=== PATIENT | male | born 1930 | race Caucasian/White ===

== ENCOUNTER 2016-12-30 10:55 | Emergency (ER) | payer MEDICARE ==
[~2016-12-30] VITALS: Ht 185.4 cm; Wt 90.7 kg
[~2016-12-30 10:55] MED LIST: ALPR0.254 PO; B-CO1TAB22 PO; CLOP75TA28 PO; DRON400T PO; LACT10SO3 PO; PANT40TA2 PO; SEVE800T8 PO; TEMA30CA PO
[2016-12-30 11:35] VITALS: BP 159/74
[2016-12-30 12:14] LABS: Urine Bilirubin Negative (Negative); Urine Color Yellow (Yellow); Urine Glucose Normal (Normal); Urine Ketone Negative (Negative); Urine Nitrite Negative (Negative); Urine RBC 26 /hpf (0 - 3); Urine Urobilinogen Normal (Negative)
[2016-12-30 12:22] LABS: Urine Blood 2+ /uL (Negative)
[2016-12-31] MEDS ORDERED: SEVE800T8 PO (18:44)
[2016-12-31] MEDS ORDERED: HYDR-531 PO (18:44)
== END 2016-12-30 12:42 | disposition home or self-care (01) ==
LOC: EDBD 10:55 → EDUNIT# 10:55 → ER 10:55
DX: N39.0 Urinary tract infection, site not specified (principal); I12.0 Hypertensive chronic kidney disease with stage 5 chronic kidney disease or end stage renal disease; N18.6 End stage renal disease; Z99.2 Dependence on renal dialysis; Z98.61 Coronary angioplasty status
CPT/HCPCS: 51702; 81001; 81002

== ENCOUNTER 2016-12-30 21:22 | Inpatient (IN) | payer MEDICARE ==
[~2016-12-30] VITALS: Ht 185.4 cm; Wt 96.0 kg
[2016-12-31 00:24] LABS: Basophils # (auto) 0 uL; Basophils % (auto) 0.2 % (0.0-2.0); Eosinophils # (auto) 0.2 uL; Eosinophils % (auto) 1.7 % (0.0-7.0); Hematocrit 27.9 % (41.0-53.0); Hemoglobin 9.1 g/dL (13.5-17.5); Lymphocytes # (auto) 0.9 uL; Mean Corpuscular Hemoglobin 28.3 pg (28.0-32.0); Mean Corpuscular Hgb Conc. 32.7 g/dL (32.0-36.0); Mean Corpuscular Volume 86.7 fL (80.0-100.0); Mean Platelet Volume 8.2 fL (7.4-10.4); Monocytes # (auto) 0.5 uL; Neutrophils # (auto) 11.2 uL; Neutrophils % (auto) 87.1 % (37.0-80.0); Platelet Count (auto) 359 10^3/uL (140-450); Red Cell Distribution Width 12.6 % (11.6-16.0); SUSPECT SEE PRINTOUT; White Blood Cell 12.8 10^3/uL (4.4-10.8)
[2016-12-31 00:26] LABS: Urine Squamous Epithelial Cell None Seen /hpf (<5)
[2016-12-31 00:42] LABS: Albumin 2.7 g/dL (3.4-5.0); BUN/Creatinine Ratio 7.6; Calcium 7.4 mg/dL (8.5-10.1); Potassium 4.1 mmol/L (3.5-5.1)
[2016-12-31 00:45] LABS: Bilirubin, Total 0.4 mg/dL (0.2-1.0); Total Protein 7.3 g/dL (6.4-8.2)
[2016-12-31 00:50] LABS: Urine Bilirubin Negative (Negative); Urine Blood 3+ /uL (Negative); Urine Color RED (Yellow); Urine Glucose Normal (Normal); Urine Ketone Negative (Negative); Urine Nitrite Negative (Negative); Urine Urobilinogen Normal (Negative); Urine pH 8.5 (5.0-8.0)
[2016-12-31 00:51] LABS: Urine RBC 2037 /hpf (0 - 3)
[2016-12-31 00:52] LABS: INR 1.05 (0.9-1.15); Prothrombin Time 11.4 sec (9.37-12.3)
[2016-12-31] MEDS ORDERED: cefTRIAXone 1GM/50ML D5W 50 ML IV ONE (03:30)
[2016-12-31] MEDS ORDERED: ACETAMINOPHEN 325 MG TAB PO PRN (05:30)
[2016-12-31] MEDS ORDERED: ONDANSETRON HCL 4 MG/2 ML VIAL IV PRN (05:30)
[2016-12-31] MEDS ORDERED: HYDROcodone-ACET 5/325MG TAB PO PRN (05:30)
[2016-12-31] MEDS: SEVELAMER 800 MG TAB PO SCH ×3 (08:19→19:43)
[2016-12-31 08:25] LABS: Hematocrit 25.1 % (41.0-53.0); Hemoglobin 8.6 g/dL (13.5-17.5)
[2016-12-31] MEDS: DRONEDARONE HCL 400 MG TAB PO SCH (09:58)
[2016-12-31] MEDS: FAMOTIDINE 20 MG TAB PO SCH (09:58)
[2016-12-31] MEDS ORDERED: cloNIDine HCL 0.1 MG TAB PO PRN (13:15)
[2016-12-31 18:19] VITALS: BP 152/67
[2016-12-31] MEDS ORDERED: HYDR-531 PO (18:44)
[2016-12-31] MEDS ORDERED: SEVE800T8 PO (18:44)
[2016-12-31] MEDS: BOOST PLUS 8 ounce PO SCH ×2 (19:43→21:50)
[2016-12-31 20:00] VITALS: BP 148/74
[2016-12-31 21:30] VITALS: BP 148/74
[2016-12-31] MEDS: TEMAZEPAM 15 MG CAP PO PRN (21:50)
[2016-12-31] MEDS: cefTRIAXone 1GM/50ML D5W 50 ML IV SCH (21:50)
[2017-01-01] VITALS (7 sets, daily range): BP systolic 144–176; BP diastolic 63–91
[2017-01-01 05:35] LABS: Basophils # (auto) 0.1 uL; Basophils % (auto) 0.8 % (0.0-2.0); CONDITION Y; DEFINITIVE SEE PRINTOUT; Eosinophils # (auto) 0.3 uL; Eosinophils % (auto) 3.2 % (0.0-7.0); Hematocrit 25.1 % (41.0-53.0); Hemoglobin 8.4 g/dL (13.5-17.5); Lymphocytes # (auto) 1.4 uL; Lymphocytes % (auto) 12.5 % (10.0-50.0); Mean Corpuscular Hemoglobin 29.6 pg (28.0-32.0); Mean Corpuscular Hgb Conc. 33.6 g/dL (32.0-36.0); Mean Corpuscular Volume 88.1 fL (80.0-100.0); Mean Platelet Volume 8.6 fL (7.4-10.4); Monocytes # (auto) 0.6 uL; Monocytes % (auto) 5.2 % (0.0-12.0); Neutrophils # (auto) 8.6 uL; Neutrophils % (auto) 78.3 % (37.0-80.0); Platelet Count (auto) 314 10^3/uL (140-450); Red Cell Distribution Width 13.5 % (11.6-16.0)
[2017-01-01 06:08] LABS: Albumin 2.4 g/dL (3.4-5.0); BUN/Creatinine Ratio 8.1; Bilirubin, Total 0.4 mg/dL (0.2-1.0); Calcium 7.9 mg/dL (8.5-10.1); Potassium 4.5 mmol/L (3.5-5.1); Total Protein 6.2 g/dL (6.4-8.2)
[2017-01-01] MEDS: BOOST PLUS 8 ounce PO SCH ×4 (06:22→21:29)
[2017-01-01] MEDS: SEVELAMER 800 MG TAB PO SCH ×3 (08:44→18:41)
[2017-01-01] MEDS: DRONEDARONE HCL 400 MG TAB PO SCH (09:28)
[2017-01-01] MEDS: FAMOTIDINE 20 MG TAB PO SCH (09:28)
[2017-01-01] MEDS ORDERED: TAM04C PO (10:42)
[2017-01-01] MEDS ORDERED: TAMSULOSIN HYDROCHLORIDE 0.4 MG CAP PO ONE (10:45)
[2017-01-01] MEDS ORDERED: EPOETIN ALFA 10,000 UNIT/1 ML VIAL IV ONE (16:15)
[2017-01-01] MEDS ORDERED: SODIUM CHL 0.9% 1000 ML BAG XX ONE (16:15)
[2017-01-01] MEDS ORDERED: TAMSULOSIN HYDROCHLORIDE 0.4 MG CAP PO SCH (18:00)
[2017-01-01] MEDS: cefTRIAXone 1GM/50ML D5W 50 ML IV SCH (21:29)
[2017-01-01] MEDS: TEMAZEPAM 15 MG CAP PO PRN (21:36)
[2017-01-02 04:49] VITALS: BP 135/64
[2017-01-02] MEDS: BOOST PLUS 8 ounce PO SCH (06:00)
[2017-01-02 08:00] VITALS: BP 143/69
[2017-01-02 08:06] LABS: PSA Free 1.65 ng/mL
[2017-01-02] MEDS: SEVELAMER 800 MG TAB PO SCH (08:16)
[2017-01-02] MEDS ORDERED: CEPH-37 PO (08:17)
[2017-01-02 09:00] VITALS: BP 143/69
[2017-01-02] MEDS: FAMOTIDINE 20 MG TAB PO SCH (09:01)
[2017-01-02] MEDS: DRONEDARONE HCL 400 MG TAB PO SCH (09:01)
[2017-01-02 10:27] VITALS: BP 143/69
== END 2017-01-02 11:05 | disposition home or self-care (01) | DRG 689 ==
LOC: EDBD 21:22 → ER 21:29 → OVERFLOW 21:30 → CENTRAL 12-31 15:32
PROVIDERS: ADMIT Nurse Practitioner; ATTEND Nurse Practitioner Acute Care
PROC: 5A1D60Z (ICD-10-PCS; principal; 2016-12-31)
DX: N39.0 Urinary tract infection, site not specified (principal); N18.6 End stage renal disease; E44.0 Moderate protein-calorie malnutrition; I12.0 Hypertensive chronic kidney disease with stage 5 chronic kidney disease or end stage renal disease; C74.91 Malignant neoplasm of unspecified part of right adrenal gland; J90 Pleural effusion, not elsewhere classified; J98.11 Atelectasis; R31.0 Gross hematuria; Z99.2 Dependence on renal dialysis; N13.30 Unspecified hydronephrosis; D63.8 Anemia in other chronic diseases classified elsewhere; N40.0 Benign prostatic hyperplasia without lower urinary tract symptoms; R33.9 Retention of urine, unspecified; E78.5 Hyperlipidemia, unspecified; E87.70 Fluid overload, unspecified; I70.0 Atherosclerosis of aorta; K57.30 Diverticulosis of large intestine without perforation or abscess without bleeding; I51.7 Cardiomegaly; N28.1 Cyst of kidney, acquired; R16.2 Hepatomegaly with splenomegaly, not elsewhere classified; Z68.27 Body mass index [BMI] 27.0-27.9, adult; Z79.899 Other long term (current) drug therapy
CPT/HCPCS: 36415; 51702; 71010; 74176; 80053; 81001; 81002; 84154; 85014; 85018; 85025; 85610; 85730; 87081; 87086; 90935; 93005; 94761; 96365; J0696; J0885

== ENCOUNTER → 2017-01-08 | Outpatient (CLI) | payer MEDICARE ==
[~2017-01-08] MED LIST changes: -ALPR0.254 PO; +CEPH-37 PO; +HYDR-531 PO; -LACT10SO3 PO; +TAM04C PO
== END | disposition home or self-care (01) ==
LOC: LAB 13:00
PROVIDERS: ATTEND Urology
DX: R33.9 Retention of urine, unspecified (principal); N40.0 Benign prostatic hyperplasia without lower urinary tract symptoms

== ENCOUNTER → 2017-03-10 | Day surgery (SDC) | payer MEDICARE ==
[2017-03-06 12:47] LABS: Basophils # (auto) 0 uL; Basophils % (auto) 0.2 % (0.0-2.0); CONDITION Y; Eosinophils # (auto) 0.2 uL; Hemoglobin 10.1 g/dL (13.5-17.5); Lymphocytes % (auto) 9.7 % (10.0-50.0); Mean Corpuscular Hemoglobin 27.8 pg (28.0-32.0); Mean Corpuscular Hgb Conc. 32.5 g/dL (32.0-36.0); Mean Corpuscular Volume 85.5 fL (80.0-100.0); Mean Platelet Volume 8.7 fL (6.9-10.8); Monocytes # (auto) 0.6 uL; Monocytes % (auto) 5.8 % (0.0-12.0); Neutrophils # (auto) 8.6 uL; Neutrophils % (auto) 82.3 % (37.0-80.0); Platelet Count (auto) 216 10^3/uL (140-450); Red Cell Distribution Width 16.8 % (11.8-14.3); White Blood Cell 10.4 10^3/uL (4.4-10.8)
[2017-03-06 13:05] LABS: INR 1.06 (0.9-1.15); Prothrombin Time 11.6 sec (9.37-12.3)
[2017-03-06 13:14] LABS: Albumin 3.1 g/dL (3.4-5.0); BUN/Creatinine Ratio 6.9; Bilirubin, Total 0.5 mg/dL (0.2-1.0); Calcium 8.4 mg/dL (8.5-10.1); Potassium 3.6 mmol/L (3.5-5.1); Total Protein 7.3 g/dL (6.4-8.2)
[~2017-03-10] VITALS: Ht 185.4 cm; Wt 90.7 kg
[~2017-03-10] MED LIST changes: -B-CO1TAB22 PO; +BELLADONNA ALKAL/OPIUM (16.2/30MG) RECT SUPP PR ONE; -CLOP75TA28 PO; +GLYCOPYRROLATE 0.2 MG/ML 1ML VIAL IV ONE; +MORPHINE SULF INJ 2 MG/ML SYRINGE 1ML IV PRN; +NEOSTIGMINE 1 MG/ML INJ (10mg/10ML VIAL) IV ONE; +ONDANSETRON HCL 4 MG/2 ML VIAL IV ONE; +PROPOFOL 10 MG/ML 20 ML IV ONE; +ROCURONIUM 10MG/ML 10ML VIAL IV ONE; -TEMA30CA PO; +ceFAZolin 1GM/50ML D5W 50 ML IV ONE; +ePHEDrine SULFATE 50 MG/ML AMP IV PRN; +fentaNYL CITRATE 100 MCG/2 ML VL ONE; +hydrALAZINE HCL 20 MG/ML VL IV PRN
[2017-03-10 12:45] VITALS: BP 158/80
== END | disposition home or self-care (01) ==
LOC: SUR 06:09
PROVIDERS: ATTEND Urology
DX: N40.1 Benign prostatic hyperplasia with lower urinary tract symptoms (principal); R97.20 Elevated prostate specific antigen [PSA]; I25.10 Atherosclerotic heart disease of native coronary artery without angina pectoris; N18.6 End stage renal disease
CPT/HCPCS: 36415; 52601; 80053; 84132; 85025; 85610; 85730; 88305; J0690; J2704; J3010

== ENCOUNTER 2017-03-16 12:31 | Inpatient (IN) | payer MEDICARE ==
[~2017-03-16] VITALS: Ht 185.4 cm; Wt 95.6 kg
[~2017-03-16 12:31] MED LIST changes: -BELLADONNA ALKAL/OPIUM (16.2/30MG) RECT SUPP PR ONE; -GLYCOPYRROLATE 0.2 MG/ML 1ML VIAL IV ONE; -MORPHINE SULF INJ 2 MG/ML SYRINGE 1ML IV PRN; -NEOSTIGMINE 1 MG/ML INJ (10mg/10ML VIAL) IV ONE; -ONDANSETRON HCL 4 MG/2 ML VIAL IV ONE; -PROPOFOL 10 MG/ML 20 ML IV ONE; -ROCURONIUM 10MG/ML 10ML VIAL IV ONE; -ceFAZolin 1GM/50ML D5W 50 ML IV ONE; -ePHEDrine SULFATE 50 MG/ML AMP IV PRN; -fentaNYL CITRATE 100 MCG/2 ML VL ONE; -hydrALAZINE HCL 20 MG/ML VL IV PRN
[2017-03-16 13:26] LABS: Basophils # (auto) 0.1 uL; Basophils % (auto) 1.3 % (0.0-2.0); Eosinophils # (auto) 0.4 uL; Eosinophils % (auto) 4.8 % (0.0-7.0); Hematocrit 32.9 % (41.0-53.0); Hemoglobin 10.5 g/dL (13.5-17.5); Lymphocytes # (auto) 0.6 uL; Lymphocytes % (auto) 6.6 % (10.0-50.0); Mean Corpuscular Hemoglobin 27.6 pg (28.0-32.0); Mean Corpuscular Hgb Conc. 31.8 g/dL (32.0-36.0); Mean Corpuscular Volume 86.7 fL (80.0-100.0); Mean Platelet Volume 8.7 fL (6.9-10.8); Monocytes # (auto) 0.4 uL; Monocytes % (auto) 5.1 % (0.0-12.0); Neutrophils # (auto) 6.9 uL; Neutrophils % (auto) 82.2 % (37.0-80.0); Platelet Count (auto) 130 10^3/uL (140-450); Red Cell Distribution Width 17.2 % (11.8-14.3); White Blood Cell 8.4 10^3/uL (4.4-10.8)
[2017-03-16 13:54] LABS: BUN/Creatinine Ratio 6.9; Bilirubin, Total 0.5 mg/dL (0.2-1.0); Calcium 8.5 mg/dL (8.5-10.1); Potassium 3.6 mmol/L (3.5-5.1); Total Protein 6.9 g/dL (6.4-8.2)
[2017-03-16] MEDS ORDERED: NITROGLYCERIN 0.4 MG SL TAB SL PRN (14:30)
[2017-03-16] MEDS ORDERED: MORPHINE SULF INJ 2 MG/ML SYRINGE 1ML IV PRN (14:30)
[2017-03-16] MEDS ORDERED: HYDROcodone-ACET 5/325MG TAB PO PRN (14:30)
[2017-03-16 14:51] LABS: INR 1.07 (0.9-1.15); Partial Thromboplastin Time 30.4 sec (22.64-33.71); Prothrombin Time 11.7 sec (9.37-12.3)
[2017-03-16] MEDS ORDERED: cefTRIAXone 1GM/50ML D5W 50 ML IV ONE (15:00)
[2017-03-16] MEDS ORDERED: SEVELAMER 800 MG TAB PO ONE (15:00)
[2017-03-16] MEDS ORDERED: PANTOPRAZOLE 40 MG TAB PO ONE (15:00)
[2017-03-16] MEDS ORDERED: FUROSEMIDE 100 MG/10ML VIAL IV ONE (17:00)
[2017-03-16] MEDS: cloNIDine HCL 0.1 MG TAB PO PRN ×2 (17:04→18:26)
[2017-03-16] MEDS: ALBUTEROL SULF 2.5 MG/0.5ML(0.5%) NEB SOLN NEB PRN ×2 (17:31→22:54)
[2017-03-16] MEDS: IPRATROPIUM BROM 0.5 MG/2.5ML INH SOL NEB SCH (18:22)
[2017-03-16] MEDS: SEVELAMER 800 MG TAB PO SCH (18:26)
[2017-03-16 20:00] VITALS: BP 145/56
[2017-03-16 20:30] VITALS: BP 145/56
[2017-03-16 21:39] VITALS: BP 138/61
[2017-03-16] MEDS ORDERED: MULTAQ 400 MG PO SCH (22:00)
[2017-03-17] VITALS (7 sets, daily range): BP systolic 114–142; BP diastolic 57–94
[2017-03-17] MEDS: IPRATROPIUM BROM 0.5 MG/2.5ML INH SOL NEB SCH ×5 (00:47→23:57)
[2017-03-17] MEDS: ALBUTEROL SULF 2.5 MG/0.5ML(0.5%) NEB SOLN NEB PRN ×2 (03:04→06:40)
[2017-03-17] MEDS ORDERED: FUROSEMIDE 40 MG/4 ML VIAL IV ONE (04:15)
[2017-03-17 05:24] LABS: Urine Bilirubin Negative (Negative); Urine Blood 2+ /uL (Negative); Urine Glucose Normal (Normal); Urine Ketone Negative (Negative); Urine Nitrite Negative (Negative); Urine RBC 1633 /hpf (0 - 3); Urine Urobilinogen Normal (Negative)
[2017-03-17 05:25] LABS: Urine Color Red (Yellow)
[2017-03-17 06:44] LABS: Basophils # (auto) 0.1 uL; Eosinophils # (auto) 0.5 uL; Eosinophils % (auto) 5.3 % (0.0-7.0); Hematocrit 30.5 % (41.0-53.0); Hemoglobin 9.9 g/dL (13.5-17.5); Lymphocytes # (auto) 0.6 uL; Lymphocytes % (auto) 7.4 % (10.0-50.0); Mean Corpuscular Hgb Conc. 32.3 g/dL (32.0-36.0); Mean Corpuscular Volume 86.6 fL (80.0-100.0); Mean Platelet Volume 8.8 fL (6.9-10.8); Monocytes # (auto) 0.5 uL; Monocytes % (auto) 5.7 % (0.0-12.0); Neutrophils # (auto) 7.1 uL; Neutrophils % (auto) 80.6 % (37.0-80.0); Platelet Count (auto) 111 10^3/uL (140-450); Red Cell Distribution Width 16.9 % (11.8-14.3); White Blood Cell 8.8 10^3/uL (4.4-10.8)
[2017-03-17] MEDS ORDERED: TEMA15CA91 PO (07:09)
[2017-03-17] MEDS ORDERED: CLOP75TA41 PO (07:09)
[2017-03-17] MEDS ORDERED: MULTTAB61 PO (07:09)
[2017-03-17] MEDS ORDERED: DOCU100T15 PO (07:09)
[2017-03-17 07:10] LABS: BUN/Creatinine Ratio 7.8; Calcium 8.5 mg/dL (8.5-10.1); Potassium 3.5 mmol/L (3.5-5.1)
[2017-03-17] MEDS: SEVELAMER 800 MG TAB PO SCH ×3 (08:00→18:34)
[2017-03-17] MEDS: cefTRIAXone 1GM/50ML D5W 50 ML IV SCH (09:00)
[2017-03-17] MEDS: PANTOPRAZOLE 40 MG TAB PO SCH (10:00)
[2017-03-17] MEDS ORDERED: EPOETIN ALFA 10,000 UNIT/1 ML VIAL IV ONE (11:00)
[2017-03-17] MEDS ORDERED: TEMAZEPAM 15 MG CAP PO ONE (22:30)
[2017-03-18 05:00] VITALS: BP 150/80
[2017-03-18] MEDS: IPRATROPIUM BROM 0.5 MG/2.5ML INH SOL NEB SCH ×3 (06:24→19:08)
[2017-03-18 09:00] VITALS: BP 142/71
[2017-03-18] MEDS: PANTOPRAZOLE 40 MG TAB PO SCH (09:08)
[2017-03-18] MEDS: SEVELAMER 800 MG TAB PO SCH ×3 (09:09→18:16)
[2017-03-18] MEDS: cefTRIAXone 1GM/50ML D5W 50 ML IV SCH (09:09)
[2017-03-18] MEDS ORDERED: DOCUSATE SOD 100 MG CAP PO PRN (10:30)
[2017-03-18] MEDS ORDERED: TEMAZEPAM 15 MG CAP PO PRN (10:45)
[2017-03-18] MEDS ORDERED: LACTULOSE 20Gm/30ML SOLN PO ONE (12:00)
[2017-03-18 13:00] VITALS: BP 142/66
[2017-03-18] MEDS ORDERED: SEVELAMER 800 MG TAB PO ONE (13:15)
[2017-03-18 16:52] VITALS: BP 140/67
[2017-03-18 20:00] VITALS: BP 158/77
[2017-03-18 21:30] VITALS: BP 158/77
[2017-03-18] MEDS: LACTULOSE 20Gm/30ML SOLN PO SCH (21:55)
[2017-03-19] MEDS: IPRATROPIUM BROM 0.5 MG/2.5ML INH SOL NEB SCH ×3 (01:16→11:50)
[2017-03-19] MEDS: ALBUTEROL SULF 2.5 MG/0.5ML(0.5%) NEB SOLN NEB PRN ×3 (03:34→11:50)
[2017-03-19 05:00] VITALS: BP 129/75
[2017-03-19 06:38] LABS: Basophils # (auto) 0.1 uL; Basophils % (auto) 0.9 % (0.0-2.0); Eosinophils # (auto) 0.6 uL; Eosinophils % (auto) 6.8 % (0.0-7.0); Hematocrit 33.2 % (41.0-53.0); Hemoglobin 10.8 g/dL (13.5-17.5); Lymphocytes # (auto) 0.9 uL; Lymphocytes % (auto) 10.1 % (10.0-50.0); Mean Corpuscular Hemoglobin 27.8 pg (28.0-32.0); Mean Corpuscular Hgb Conc. 32.4 g/dL (32.0-36.0); Mean Corpuscular Volume 85.8 fL (80.0-100.0); Mean Platelet Volume 8.6 fL (6.9-10.8); Monocytes # (auto) 0.7 uL; Monocytes % (auto) 7.6 % (0.0-12.0); Neutrophils # (auto) 6.7 uL; Neutrophils % (auto) 74.6 % (37.0-80.0); Nucleated Red Blood Cells % 0.1 %; Platelet Count (auto) 143 10^3/uL (140-450); Red Cell Distribution Width 17.1 % (11.8-14.3)
[2017-03-19] MEDS: cefTRIAXone 1GM/50ML D5W 50 ML IV SCH (08:44)
[2017-03-19] MEDS: SEVELAMER 800 MG TAB PO SCH ×2 (08:44→12:57)
[2017-03-19] MEDS: PANTOPRAZOLE 40 MG TAB PO SCH (08:44)
[2017-03-19] MEDS: LACTULOSE 20Gm/30ML SOLN PO SCH (08:44)
[2017-03-19 09:39] VITALS: BP 140/70
[2017-03-19 13:00] VITALS: BP 150/72
[2017-03-19] MEDS ORDERED: cefTAZidime 1 GM in D5W 5% 50 ML IV ONE (14:45)
[2017-03-20] MEDS ORDERED: cefTAZidime 1 GM in D5W 5% 50 ML IV SCH (10:00)
== END 2017-03-19 14:30 | DRG 698 ==
LOC: ER 12:31 → TELE 12:32 → TELE-CENTR 20:10
PROVIDERS: ADMIT Internal Medicine; ATTEND Internal Medicine
PROC: 5A1D60Z (ICD-10-PCS; principal; 2017-03-17)
DX: N99.89 Other postprocedural complications and disorders of genitourinary system (principal); I50.33 Acute on chronic diastolic (congestive) heart failure; N18.6 End stage renal disease; N39.0 Urinary tract infection, site not specified; R31.0 Gross hematuria; I48.0 Paroxysmal atrial fibrillation; I13.2 Hypertensive heart and chronic kidney disease with heart failure and with stage 5 chronic kidney disease, or end stage renal disease; D64.9 Anemia, unspecified; N40.0 Benign prostatic hyperplasia without lower urinary tract symptoms; G47.00 Insomnia, unspecified; K59.00 Constipation, unspecified; I25.10 Atherosclerotic heart disease of native coronary artery without angina pectoris; I49.9 Cardiac arrhythmia, unspecified; E78.5 Hyperlipidemia, unspecified; Y83.8 Other surgical procedures as the cause of abnormal reaction of the patient, or of later complication, without mention of misadventure at the time of the procedure; Y82.8 Other medical devices associated with adverse incidents; Y92.89 Other specified places as the place of occurrence of the external cause; Z95.5 Presence of coronary angioplasty implant and graft; Z80.9 Family history of malignant neoplasm, unspecified; Z87.891 Personal history of nicotine dependence; Z99.2 Dependence on renal dialysis; Z90.79 Acquired absence of other genital organ(s); Z79.899 Other long term (current) drug therapy; Z90.89 Acquired absence of other organs
CPT/HCPCS: 36415; 71010; 80048; 80053; 81001; 84132; 84484; 85025; 85610; 85730; 87081; 87086; 87088; 87186; 90935; 93005; 93306; 94640; 96365; 96375; J0696; J0885; J7060